=== PATIENT | male | born 1985 | race Caucasian/White ===

== ENCOUNTER 2017-07-05 21:53 | Emergency (ER) | payer OTHER ==
[~2017-07-05] VITALS: Ht 170.2 cm; Wt 86.6 kg
[2017-07-05 21:57] VITALS: Ht 170.2 cm; Wt 86.6 kg
[2017-07-05] MEDS ORDERED: NEOM28OI TP (22:17)
[2017-07-05] MEDS ORDERED: ACET1TAB40 PO (22:17)
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
[2017-07-05] MEDS ORDERED: ACETAMINOPHEN 325 MG TAB PO ONE (22:30)
[2017-07-05] MEDS ORDERED: DIPHTH/TET/ACEL PERTUSS (ADULT) 0.5 ML VIAL IM* ONE (22:30)
== END 2017-07-05 23:10 | disposition home or self-care (01) ==
LOC: FTE 21:53
DX: T22.231A Burn of second degree of right upper arm, initial encounter (principal); X18.XXXA Contact with other hot metals, initial encounter
CPT/HCPCS: 16025; 90471; 90715; Z7502; Z7610